=== PATIENT | female | born 1965 | race Caucasian/White ===

== ENCOUNTER 2021-12-04 05:07 | Emergency (ER) | payer BC, SELFPAY ==
[2021-12-04] VITALS (12 sets, daily range): BP systolic 152–188; BP diastolic 74–99; PULSE 72–91; RESP 14–25; O2SAT 96–100; BMI 28.3
--- NOTE | 2021-12-04 05:19 | DI.RAD.S_ITS ---
PROCEDURE: XR CHEST 1V INDICATIONS: Upper back/epigastric pain TECHNIQUE: One view of the chest was acquired. COMPARISON: None. FINDINGS: Surgical changes and devices: None. Lungs and pleura: Lungs are clear. No pleural effusions or pneumothorax. Mediastinum: Mediastinal contours appear normal. Heart size is normal. Bones and chest wall: No suspicious bony lesions. Overlying soft tissues appear unremarkable. IMPRESSION: No acute cardiopulmonary findings Note: Final report is concordant with preliminary interpretation by [facility] Approved by: Bobby Sheets M.D. on 12/04/2021 at 6:35
--- NOTE | 2021-12-04 05:34 | ED_ITS ---
HPI - General Adult <Nadeem Neal DO - Last Filed: 12/04/21 07:14> General Chief complaint: Abdominal Pain Stated complaint: back/abd pain/dizzy/nausea Time Seen by Provider: 12/04/21 05:18 Source: patient Mode of arrival: Ambulatory History of Present Illness HPI narrative: Patient is a 56-year-old female who is here for evaluation of upper abdominal pain and nausea and vomiting and feeling lightheaded now back discomfort. She states that her symptoms started last night at approximately 0700 hours. They have continued since then. No fevers. She did eat quite a bit of crab last evening. She is not had any diarrhea. No prior abdominal surgeries. She has had issues with food impactions in the past but does not feel like anything is stuck in her throat. She did try some [place] however she vomited this medication shortly after its use. No fevers. Related Data Previous Rx's Medication Instructions Recorded ondansetron 4 mg disintegrating 4 mg PO Q8H PRN nausea and 12/04/21 tablet vomiting #10 tabs sucralfate 1 gram tablet (Carafate) 1 g PO BID #20 tabs 12/04/21 Allergies Allergy/AdvReac Type Severity Reaction Status Date / Time No Known Drug Allergies Allergy Verified 12/04/21 05:53 <Carlos Corado MD - Last Filed: 12/04/21 19:02> History of Present Illness HPI narrative: Patient is a 56-year-old female who is here for evaluation of upper abdominal pain and nausea and vomiting and feeling lightheaded now back discomfort. She states that her symptoms started last night at approximately 1900 hours. They have continued since then. No fevers. She did eat quite a bit of crab last evening. She is not had any diarrhea. No prior abdominal surgeries. She has had issues with food impactions in the past but does not feel like anything is stuck in her throat. She did try some [place]ha[place] however she vomited this medication shortly after its use. No fevers. Patient had spicy macaroni and cheese and crab cakes. Review of Systems <Nadeem Neal DO - Last Filed: 12/04/21 07:14> Constitutional Constitutional: Reports system reviewed and no additional complaints, except as documented Cardiovascular Cardiovascular: Reports system reviewed and no additional complaints, except as documented Respiratory Respiratory: Reports system reviewed and no additional complaints, except as documented Gastrointestinal Gastrointestinal: Reports system reviewed and no additional complaints, except as documented Genitourinary Genitourinary: Reports system reviewed and no additional complaints, except as documented Integumentary/Breasts Skin/Breast: Reports system reviewed and no additional complaints, except as documented Hematologic/Lymphatic On Anticoagulants: No Patient History <DO Ibrahima Bello Last Filed: 12/04/21 07:14> Medical History Esophageal obstruction due to food impaction Social History marital status: lives independently: Yes Exam <DO Ibrahima Bello Last Filed: 12/04/21 07:14> Initial Vital Signs Initial Vital Signs: Vital Signs Pulse Rate 72 12/04/21 05:14 Respiratory Rate 18 12/04/21 05:14 Blood Pressure 185/91 H 12/04/21 05:14 Pulse Oximetry 100 12/04/21 05:14 Oxygen Delivery Method 12/04/21 05:14 HENDC Head: normal to inspection and normocephalic Resp Effort & Inspection: normal respiratory effort Auscultation: clear to auscultation bilaterally Cardio Rate: regular rate Rhythm: regular rhythm GI Inspection: normal to inspection Palpation: No firm and tender (Mild discomfort epigastric region) Back/Spine/Pelvis Back: No CVA tenderness Skin General: no rashes or lesions noted Extrem General: normal to inspection and capillary refill normal <Carlos Corado MD - Last Filed: 12/04/21 19:02> Initial Vital Signs Initial Vital Signs: Vital Signs Pulse Rate 72 12/04/21 05:14 Respiratory Rate 18 12/04/21 05:14 Blood Pressure 185/91 H 12/04/21 05:14 Pulse Oximetry 100 12/04/21 05:14 Oxygen Delivery Method 12/04/21 05:14 Course <Nadeem Neal DO - Last Filed: 12/04/21 07:14> Orders Ordered: Discontinued Medications Al Hydrox/Mg Hydrox/Simethicone 20 ml/ Lidocaine HCl 15 ml 0 ml PO NOW ONE Stop: 12/04/21 05:36 Last Admin: 12/04/21 06:06 Dose: 35 ml Documented By: KP Sodium Chloride (Normal Saline 0.9%) 1,000 mls @ 1,000 mls/hr IV BOLUS ONE Stop: 12/04/21 07:35 Last Infusion: 12/04/21 07:47 Dose: 0 mls/hr Documented By: Admin: 12/04/21 06:42 Dose: 1,000 mls/hr Documented By: JIMENEZ Metoclopramide HCl (Metoclopramide 10 Mg/2 Ml Inj) 10 mg IV NOW ONE Stop: 12/04/21 06:37 Last Admin: 12/04/21 06:42 Dose: 10 mg Documented By: IJMENEZ Ondansetron HCl (Ondansetron 4 Mg/2 Ml Inj) 4 mg IV NOW ONE Stop: 12/04/21 05:35 Last Admin: 12/04/21 05:44 Dose: 4 mg Documented By: JIMENEZ Pantoprazole Sodium (Pantoprazole 40 Mg Vial) 40 mg IV NOW ONE Stop: 12/04/21 05:35 Last Admin: 12/04/21 05:44 Dose: 40 mg Documented By: JIMENEZ Vital Signs Vital signs: Vital Signs - 8 hr 12/04/21 05:14 12/04/21 05:52 12/04/21 05:54 Pulse Rate 72 87 Respiratory Rate 18 17 Blood Pressure 185/91 H 188/99 H Pulse Oximetry 100 Oxygen Delivery Method Room Air 12/04/21 05:54 12/04/21 06:00 12/04/21 06:00 Pulse Rate 87 85 Respiratory Rate 16 14 Blood Pressure 160/89 H Pulse Oximetry 97 97 Oxygen Delivery Method 12/04/21 06:30 12/04/21 06:30 12/04/21 07:00 Pulse Rate 83 81 Respiratory Rate 16 16 Blood Pressure 180/74 H Pulse Oximetry 96 97 Oxygen Delivery Method 12/04/21 07:20 12/04/21 07:20 Pulse Rate 91 H Respiratory Rate 24 Blood Pressure 184/83 H Pulse Oximetry 98 Oxygen Delivery Method <Carlos Corado MD - Last Filed: 12/04/21 19:02> Course Course Narrative: December 04, 2021 at 7:[address] Side upper Dr. Neal, CT results are pending. Likely GI source of patient complaint. Not cardiac or chest. Not requiring narcotic pain medication at this time. 7:30 a.m.. Evaluate patient. Still has nausea. Mild epigastric discomfort. No changes with GI cocktail. Orders Ordered: Discontinued Medications Al Hydrox/Mg Hydrox/Simethicone 20 ml/ Lidocaine HCl 15 ml 0 ml PO NOW ONE Stop: 12/04/21 05:36 Last Admin: 12/04/21 06:06 Dose: 35 ml Documented By: JIMENEZ Sodium Chloride (Normal Saline 0.9%) 1,000 mls @ 1,000 mls/hr IV BOLUS ONE Stop: 12/04/21 07:35 Last Infusion: 12/04/21 07:47 Dose: 0 mls/hr Documented By: Admin: 12/04/21 06:42 Dose: 1,000 mls/hr Documented By: JIMENEZ Metoclopramide HCl (Metoclopramide 10 Mg/2 Ml Inj) 10 mg IV NOW ONE Stop: 12/04/21 06:37 Last Admin: 12/04/21 06:42 Dose: 10 mg Documented By: JIMENEZ Ondansetron HCl (Ondansetron 4 Mg/2 Ml Inj) 4 mg IV NOW ONE Stop: 12/04/21 05:35 Last Admin: 12/04/21 05:44 Dose: 4 mg Documented By: JIMENEZ Pantoprazole Sodium (Pantoprazole 40 Mg Vial) 40 mg IV NOW ONE Stop: 12/04/21 05:35 Last Admin: 12/04/21 05:44 Dose: 40 mg Documented By: JIMENEZ Reevaluation(s) Reevaluation #1: Spoke with patient and results. Patient had seen Dr. Barr, gastroenterology in [place] in the past for is cephalic esophagitis. No dilatation procedure. Last endoscopy over a year ago. She stop taking omeprazole over a year ago because the scope looked good according to patient. Reviewed with him likely over the past year has redeveloped esophagitis/gastritis. Informed her to resume omeprazole she states she will take [id number]. I will add Carafate and Zofran. She she would like local surgeon here referral for endoscopy. Patient in no distress. Return precautions reviewed with them. They agree with treatment plan. Pain and nausea controlled at this time. They had sold their house in [place] and now living up here Reviewed with her blood pressure. Current weight 176/86. It has improved. She states she has not had her blood pressure checked in over a year. Does not have a primary care provider. This may be due to the epigastric discomfort or anxiety but appropriate for outpatient follow-up to re-evaluate. No headache no numbness tingling or weakness. No slurred speech. Time: 07:57 Vital Signs Vital signs: Vital Signs - 8 hr 12/04/21 05:14 12/04/21 05:52 12/04/21 05:54 Pulse Rate 72 87 Respiratory Rate 18 17 Blood Pressure 185/91 H 188/99 H Pulse Oximetry 100 Oxygen Delivery Method Room Air 12/04/21 05:54 12/04/21 06:00 12/04/21 06:00 Pulse Rate 87 85 Respiratory Rate 16 14 Blood Pressure 160/89 H Pulse Oximetry 97 97 Oxygen Delivery Method 12/04/21 06:30 12/04/21 06:30 12/04/21 07:00 Pulse Rate 83 81 Respiratory Rate 16 16 Blood Pressure 180/74 H Pulse Oximetry 96 97 Oxygen Delivery Method 12/04/21 07:20 12/04/21 07:20 Pulse Rate 91 H Respiratory Rate 24 Blood Pressure 184/83 H Pulse Oximetry 98 Oxygen Delivery Method Medical Decision Making <Nadeem Neal DO - Last Filed: 12/04/21 07:14> Lab Data Lab results reviewed: Yes I reviewed the patient's lab results. Result diagrams: 12/04/21 06:14 12/04/21 05:24 Labs: Lab Results 12/04/21 12/04/21 Range/Units 05:24 06:14 WBC 12.2 H (4.5-11.0) X10^3/uL RBC 3.98 L (4.0-5.2) X10^6/uL Hgb 12.1 (12.0-16.0) g/dL Hct 35.2 L (36-46) % MCV 88.4 (80-100) fL MCH 30.4 (26-34) PG MCHC 34.4 (30-36) % RDW 13.2 (11.6-14.8) % Plt Count 293 (150-400) X10^3/uL Neut % (Auto) 85.4 H (50-75) % Lymph % (Auto) 9.5 L (25-40) % [place] % (Auto) 4.6 (3-14) % Eos % (Auto) 0.1 L (2-4) % Baso % (Auto) 0.4 (0-2) % Neut # (Auto) 61319 H (1840-3389) /uL Lymph # (Auto) 1200 (1944-4487) /uL [place] # (Auto) 600 (0-900) /uL Eos # (Auto) 0 (0-450) /uL Baso # (Auto) 100 (0-100) /uL Sodium 132 L (137-145) mmol/L Potassium 4.1 (3.4-5.1) mmol/L Chloride 100 (98-107) mmol/L Carbon Dioxide 21 L (22-32) mmol/L BUN 12 (7-17) mg/dL Creatinine 0.43 L (0.52-1.04) mg/dL Estimated GFR > 60 (>60) mL/min BUN/Creatinine Ratio 27.9 H (6-22) Glucose 153 H (70-100) mg/dL Calcium 8.8 (8.4-10.2) mg/dL Total Bilirubin 1.0 (0.2-1.3) mg/dL AST 29 (14-36) IU/L ALT 21 (<35) IU/L Alkaline Phosphatase 64 (38-126) U/L Total Creatine Kinase 114 (30-135) U/L CK-MB (CK-2) 0.71 (<2.37) ng/mL CK-MB (CK-2) Rel Index 0.6 L (1.5-5.0) % Troponin I < 0.012 (0.01-0.034) ng/mL Total Protein 8.2 (6.3-8.2) g/dL Albumin 4.8 (3.5-5.0) g/dL Globulin 3.4 (1.7-4.1) g/dL Albumin/Globulin Ratio 1.4 (1.0-2.8) Lipase 45 (23-300) U/L Imaging Data Chest x-ray: My Impression: No acute pathology Radiologist's Impression: No significant acute process ECG Data Attestation: I personally reviewed and interpreted this ECG as follows: Interpretation: Sinus rhythm Ventricular rate 83 Occasional PVC Normal QRS Normal QTC No ST T wave changes MDM Narrative Medical decision making narrative: Symptoms have been present for just under 12 hours. Her EKG and troponin are negative. LFTs and lipase unremarkable. Minimal improvement with the GI cocktail and the Protonix. Chest x-ray is unremarkable. Patient does have leukocytosis. Given her continued symptoms and the continued nausea and the leukocytosis and no definitive etiology from lab testing or x-rays or EKG a CT scan was obtained for further evaluation. Care turned over to Dr. Corado to follow-up on CT scan and disposition. <Carlos Corado MD - Last Filed: 12/04/21 19:02> Differential Diagnosis Differential Diagnosis: Angina as/unstable angina/gastri tis/cholecystitis/pancreatitis/gastroenteri Lab Data Labs: Lab Results 12/04/21 12/04/21 Range/Units 05:24 06:14 WBC 12.2 H (4.5-11.0) X10^3/uL RBC 3.98 L (4.0-5.2) X10^6/uL Hgb 12.1 (12.0-16.0) g/dL Hct 35.2 L (36-46) % MCV 88.4 (80-100) fL MCH 30.4 (26-34) PG MCHC 34.4 (30-36) % RDW 13.2 (11.6-14.8) % Plt Count 293 (150-400) X10^3/uL Neut % (Auto) 85.4 H (50-75) % Lymph % (Auto) 9.5 L (25-40) % [place] % (Auto) 4.6 (3-14) % Eos % (Auto) 0.1 L (2-4) % Baso % (Auto) 0.4 (0-2) % Neut # (Auto) 87670 H (3466-1984) /uL Lymph # (Auto) 1200 (8019-8685) /uL [place] # (Auto) 600 (0-900) /uL Eos # (Auto) 0 (0-450) /uL Baso # (Auto) 100 (0-100) /uL Sodium 132 L (137-145) mmol/L Potassium 4.1 (3.4-5.1) mmol/L Chloride 100 (98-107) mmol/L Carbon Dioxide 21 L (22-32) mmol/L BUN 12 (7-17) mg/dL Creatinine 0.43 L (0.52-1.04) mg/dL Estimated GFR > 60 (>60) mL/min BUN/Creatinine Ratio 27.9 H (6-22) Glucose 153 H (70-100) mg/dL Calcium 8.8 (8.4-10.2) mg/dL Total Bilirubin 1.0 (0.2-1.3) mg/dL AST 29 (14-36) IU/L ALT 21 (<35) IU/L Alkaline Phosphatase 64 (38-126) U/L Total Creatine Kinase 114 (30-135) U/L CK-MB (CK-2) 0.71 (<2.37) ng/mL CK-MB (CK-2) Rel Index 0.6 L (1.5-5.0) % Troponin I < 0.012 (0.01-0.034) ng/mL Total Protein 8.2 (6.3-8.2) g/dL Albumin 4.8 (3.5-5.0) g/dL Globulin 3.4 (1.7-4.1) g/dL Albumin/Globulin Ratio 1.4 (1.0-2.8) Lipase 45 (23-300) U/L Imaging Data Chest x-ray: Radiologist's Impression: No [address] [address] XRay Report Signed Patient: Martha Medellin MR#: [id number] : 1965 Acct:[id number] Age/Sex: 56 / F Date of Service: 12/04/21 Loc: ED Accession Number: [id number] ?? Procedure: XR chest 1V Ordering Provider: Nadeem Neal D.O. PROCEDURE:? XR CHEST 1V ? INDICATIONS:? Upper back/epigastric pain ? TECHNIQUE:? One view of the chest was acquired.? ? COMPARISON:? None. ? FINDINGS:? ? Surgical changes and devices:? None.? ? Lungs and pleura:? Lungs are clear.? No pleural effusions or pneumothorax.? ? Mediastinum:? Mediastinal contours appear normal.? Heart size is normal.? ? Bones and chest wall:? No suspicious bony lesions.? Overlying soft tissues appear unremarkable.? ? IMPRESSION:? No acute cardiopulmonary findings ? ? Note:? Final report is concordant with preliminary interpretation by [facility] [employer] ? Approved by: Bobby Sheets M.D. on 12/04/2021 at 6:35?ficant acute process CT scan - abdomen/pelvis: Radiologist's Impression: [address] [address] [address] Scan Report Signed Patient: Martha Medellin MR#: [id number] : 1965 Acct:[id number] Age/Sex: 56 / F Date of Service: 12/04/21 Loc: ED Accession Number: [id number] ?? Procedure: CT abdomen pelvis w con Ordering Provider: Nadeem Neal D.O. PROCEDURE:? CT ABDOMEN PELVIS W CON ? INDICATIONS:? Epigastric abdominal pain with vomiting ? TECHNIQUE:? After the administration of intravenous contrast, axial sections acquired from the lung bases to the pubic symphysis.? Coronal and sagittal reformats were performed.? For radiation dose reduction, the following was used:? automated exposure control, adjustment of mA and/or kV according to patient size.? ? COMPARISON:? None. ? FINDINGS: ? Lower thorax: The lung bases are clear.? Heart size normal.? No hiatal hernia. ? Liver:? Normal in size and attenuation. No contour deformity present. ? Biliary system:? No calcified cholelithiasis or pericholecystic inflammation.? No intra or extrahepatic bile duct dilatation. ? Pancreas:? Unremarkable without mass or inflammation evident. ? Spleen:? Normal in size and density. ? Adrenals:? Normal morphology and density. ? Reproductive system:? Unremarkable as visualized. ? Urinary system:? Normal renal size and attenuation. No renal calculi, hydronephrosis, or solid mass present.? Urinary bladder unremarkable. ? Gastrointestinal system:? Moderate fecal debris in the right colon ? Appendix:? Normal appendix identified.? No evidence of appendicitis. ? Peritoneal spaces:? No mesenteric or retroperitoneal adenopathy.? No free air.? No free fluid.? ? Vasculature:? The IVC, aorta and iliac vasculature are unremarkable. ? Abdominal wall:? Abdominal wall intact without evidence of ventral or inguinal hernias. ? Musculoskeletal:? Normal bone mineralization.? Degenerative disc disease and arthropathy noted in lower lumbar spine.? No acute fractures.? ? IMPRESSION: ? 1. No acute CT findings in the abdomen and pelvis. ? 2. Moderate fecal debris in the right colon ? ? Note:? Final report is concordant with preliminary interpretation by [employer] ? ? Approved by: Bobby Sheets M.D. on 12/04/2021 at 6:42? [facility] Narrative Medical decision making narrative: Symptoms have been present for just under 12 hours. Her EKG and troponin are negative. LFTs and lipase unremarkable. Minimal improvement with the GI cocktail and the Protonix. Chest x-ray is unremarkable. Patient does have leuk ocytosis. Given her continued symptoms and the continued nausea and the leukocytosis and no definitive etiology from lab testing or x-rays or EKG a CT scan was obtained for further evaluation. Care turned over to Dr. Corado to follow-up on CT scan and disposition. Appropriate for discharge home. Laboratory studies and imaging and exam otherwise reassuring. Appropriate for outpatient follow-up for blood pressure. Patient is not monitor her blood pressure for over a year. No history of hy pertension. Can be re-evaluated with primary care. Referral given for General surgery given as well as primary care. Return precautions reviewed with patient and . Not toxic at discharge. Likely recur of patient's esophagitis/gastritis as she took herself off of omeprazole over a year ago Discharge Plan Departure Patient Disposition: Home Clinical Impression: Abdominal pain Instructions: DI for Abdominal Pain-Adult, DI for Dyspepsia Activity Restrictions/Additional Instructions: Call provided general surgery office to arrange for endoscopy the stomach and esophagus. No fried fatty greasy foods or spicy foods. Would recommend bland diet. Continue vsum-[id number]-[id number] omeprazole. Prescription for Carafate and Zofran has been provided. Return if worse if any questions or concerns. Your blood pressure was elevated here today however it does need to be rechecked. Please have it monitored by a primary care physician to see if he needs to start blood pressure medication. Call provided primary care referral phone number to establish family doctor. Call [phone] Prescriptions: New ondansetron 4 mg tablet,disintegrating 4 mg PO Q8H PRN (Reason: nausea and vomiting) Qty: 10 0RF sucralfate [Carafate] 1 gram tablet 1 g PO BID Qty: 20 0RF Referrals: Doris Jefferson MD [Physician] - Visit Report Forms: Patient Portal/API
[2021-12-04 05:43] LABS: Alanine Aminotransferase 21 IU/L (<35); Albumin 4.8 g/dL (3.5-5.0); Albumin Globulin Ratio 1.4 (1.0-2.8); Alkaline Phosphatase 64 U/L (38-126); Aspartate Aminotransferase 29 IU/L (14-36); BUN Creatinine Ratio 27.9 (6-22); Blood Urea Nitrogen 12 mg/dL (7-17); Calcium 8.8 mg/dL (8.4-10.2); Carbon Dioxide 21 mmol/L (22-32); Chloride 100 mmol/L (98-107); Creatine Kinase 114 U/L (30-135); Estimated Glomerular Filt Rate > 60 mL/min (>60); Globulin 3.4 g/dL (1.7-4.1); Glucose 153 mg/dL (70-100); Lipase 45 U/L (23-300); Potassium 4.1 mmol/L (3.4-5.1); Sodium 132 mmol/L (137-145); Total Protein 8.2 g/dL (6.3-8.2)
[2021-12-04] MEDS: ONDANSETRON 4 MG/2 ML INJ IV (05:44)
[2021-12-04] MEDS: PANTOPRAZOLE 40 MG VIAL IV (05:44)
[2021-12-04 05:45] LABS: HEMOLYSIS 57 (0-50)
[2021-12-04 05:54] LABS: Troponin I < 0.012 ng/mL (0.01-0.034)
[2021-12-04 05:57] LABS: CKMB % Relative Index 0.6 % (1.5-5.0); Creatine Kinase MB 0.71 ng/mL (<2.37)
[2021-12-04] MEDS: MAG HYDROX/ALUMINUM/SIMETH SUS 20 ML, LIDOCAINE VISCOUS 2% 15 ML PO (06:06)
[2021-12-04 06:23] LABS: Add Manual Diff / Slide Review NO; Basophils Absolute Auto 100 /uL (0-100); Basophils Percent Auto 0.4 % (0-2); Eosinophils Absolute Auto 0 /uL (0-450); Eosinophils Percent Auto 0.1 % (2-4); Hematocrit 35.2 % (36-46); Hemoglobin 12.1 g/dL (12.0-16.0); Lymphocytes Absolute Auto 1200 /uL (1100-4500); Lymphocytes Percent Auto 9.5 % (25-40); Mean Corpuscular HGB Conc 34.4 % (30-36); Mean Corpuscular Hemoglobin 30.4 PG (26-34); Mean Corpuscular Volume 88.4 fL (80-100); Monocytes Absolute Auto 600 /uL (0-900); Monocytes Percent Auto 4.6 % (3-14); Neutrophils Absolute Auto 10400 /uL (1500-7000); Neutrophils Percent Auto 85.4 % (50-75); Platelet Count 293 X10^3/uL (150-400); Red Blood Cell Count 3.98 X10^6/uL (4.0-5.2); Red Cell Distribution Width 13.2 % (11.6-14.8); White Blood Cell Count 12.2 X10^3/uL (4.5-11.0)
--- NOTE | 2021-12-04 06:37 | DI.CT.S_ITS ---
PROCEDURE: CT ABDOMEN PELVIS W CON INDICATIONS: Epigastric abdominal pain with vomiting TECHNIQUE: After the administration of intravenous contrast, axial sections acquired from the lung bases to the pubic symphysis. Coronal and sagittal reformats were performed. For radiation dose reduction, the following was used: automated exposure control, adjustment of mA and/or kV according to patient size. COMPARISON: None. FINDINGS: Lower thorax: The lung bases are clear. Heart size normal. No hiatal hernia. Liver: Normal in size and attenuation. No contour deformity present. Biliary system: No calcified cholelithiasis or pericholecystic inflammation. No intra or extrahepatic bile duct dilatation. Pancreas: Unremarkable without mass or inflammation evident. Spleen: Normal in size and density. Adrenals: Normal morphology and density. Reproductive system: Unremarkable as visualized. Urinary system: Normal renal size and attenuation. No renal calculi, hydronephrosis, or solid mass present. Urinary bladder unremarkable. Gastrointestinal system: Moderate fecal debris in the right colon Appendix: Normal appendix identified. No evidence of appendicitis. Peritoneal spaces: No mesenteric or retroperitoneal adenopathy. No free air. No free fluid. Vasculature: The IVC, aorta and iliac vasculature are unremarkable. Abdominal wall: Abdominal wall intact without evidence of ventral or inguinal hernias. Musculoskeletal: Normal bone mineralization. Degenerative disc disease and arthropathy noted in lower lumbar spine. No acute fractures. IMPRESSION: 1. No acute CT findings in the abdomen and pelvis. 2. Moderate fecal debris in the right colon Note: Final report is concordant with preliminary interpretation by [facility] Approved by: Bobby Sheets M.D. on 12/04/2021 at 6:42
[2021-12-04] MEDS: METOCLOPRAMIDE 10 MG/2 ML INJ IV (06:42)
[2021-12-04] MEDS: SODIUM CHLORIDE 0.9% 1,000 ML 1000 ML IV (06:42)
== END 2021-12-04 08:33 | disposition home or self-care (01) ==
PROVIDERS: Emergency Medicine; Emergency Provider Emergency Medicine
DX: R10.10 Upper abdominal pain, unspecified (principal); R11.2 Nausea with vomiting, unspecified
CPT/HCPCS: 36415; 71045; 74177; 80053; 82550; 82553; 83690; 84484; 85025; 93005; 93010; 96361; 96374; 96375; 99284; C9113; J2405; J2765; Q9967

== ENCOUNTER → 2022-11-09 12:32 | Outpatient (CLI) | payer BC, SELFPAY ==
[2022-11-09 14:07] LABS: Add Manual Diff / Slide Review NO; Basophils Absolute Auto 100 /uL (0-100); Basophils Percent Auto 0.8 % (0-2); Eosinophils Absolute Auto 200 /uL (0-450); Hematocrit 36.5 % (36-46); Hemoglobin 12.5 g/dL (12.0-16.0); Lymphocytes Absolute Auto 2400 /uL (1100-4500); Lymphocytes Percent Auto 26.4 % (25-40); Mean Corpuscular HGB Conc 34.2 % (30-36); Mean Corpuscular Hemoglobin 31.2 PG (26-34); Mean Corpuscular Volume 91.3 fL (80-100); Monocytes Absolute Auto 600 /uL (0-900); Monocytes Percent Auto 6.9 % (3-14); Neutrophils Absolute Auto 5700 /uL (1500-7000); Neutrophils Percent Auto 63.9 % (50-75); Platelet Count 301 X10^3/uL (150-400); Red Cell Distribution Width 13.1 % (11.6-14.8)
[2022-11-09 14:32] LABS: Alanine Aminotransferase 32 IU/L (<35); Albumin 4.4 g/dL (3.5-5.0); Albumin Globulin Ratio 1.5 (1.0-2.8); Alkaline Phosphatase 53 U/L (38-126); Aspartate Aminotransferase 26 IU/L (14-36); BUN Creatinine Ratio 20.4 (6-22); Bilirubin Total 0.4 mg/dL (0.2-1.3); Blood Urea Nitrogen 10 mg/dL (7-17); Calcium 9.1 mg/dL (8.4-10.2); Carbon Dioxide 26 mmol/L (22-32); Chloride 103 mmol/L (98-107); Cholesterol 282 mg/dL (140-199); Estimated Glomerular Filt Rate > 60 mL/min (>60); Globulin 2.9 g/dL (1.7-4.1); Glucose 104 mg/dL (70-100); HDL Cholesterol 63 mg/dL (40-60); HEMOLYSIS < 15 (0-50); LDL Cholesterol Calculated 191 mg/dL (<100); Potassium 4.2 mmol/L (3.4-5.1); Sodium 138 mmol/L (137-145); Total Protein 7.3 g/dL (6.3-8.2); Triglycerides 140 mg/dL (35-150)
[2022-11-09 14:49] LABS: Free T4, Direct Thyroxine 1.05 ng/dL (0.78-2.19); T4 Total Thyroxine 7.21 ug/dL (5.5-11.0)
[2022-11-09 15:02] LABS: Thyroid Stimulating Hormone 0.585 uIU/mL (0.47-4.68)
[2022-11-10 07:17] LABS: x Labcorp Estim. Avg Glu (eAG) 123 mg/dL (.); x Labcorp Hemoglobin A1c 5.9 % (4.8-5.6)
== END ==
PROVIDERS: PCP Physician Assistant; Referring Provider Physician Assistant; Visit Provider Physician Assistant
DX: Z00.00 Encounter for general adult medical examination without abnormal findings (principal); R42 Dizziness and giddiness; E78.2 Mixed hyperlipidemia; R73.03 Prediabetes
CPT/HCPCS: 36415; 80053; 80061; 83036; 84436; 84439; 84443; 85025